=== PATIENT | male | born 1950 | race Caucasian/White ===

== ENCOUNTER → 2017-09-29 | Outpatient (CLI) | payer OTHER ==
[~2017-09-29] VITALS: Ht 177.8 cm; Wt 83.9 kg
[~2017-09-29] MED LIST: ADDERALL 20 MG20 M1 PO; AMBIEN 5 MG TABL5 M1 PO; ASPIR 8181 MG PO; CENTRUM SILVER1 EAC2 PO; COZAAR 50 MG TA50 M2 PO; FLEXERIL PO; FLOMAX0.4 MG PO; FOLIC ACID1 MG PO; LIPITOR10 MG PO; METHOTREXATE 22.5 MG PO; MOBIC7.5 MG PO; PERCOCET 5-3251 EACH PO; PERCOCET PO; PREDNISONE 10 M10 MG PO; TOPROL XL25 MG PO; ZOFRAN ODT4 MG PO; ZOLPIDEM TARTRA10 MG PO
--- NOTE | ~2017-09-29 | PATH ---
[facility] [place] [address] PATHOLOGY RPT PROCEDURE Name: ANAMARIA HERNÁNDEZ Room #: REG JOAO MDebo.#: [id number] Admission: 09/29/17 Date of : 52 Discharge: Report #: [id number] Path Case #: [id number] [facility] Accession Number: [id number] . 01 Material submitted: . PART A: POLYP AT ASCENDING COLON PART B: POLYP AT TRANSVERSE COLON . 01 Clinical history: . Pre-Op DX: Screening Post-Op DX: Colon polyps . 02 Diagnosis: A. Polyp, ascending colon, endoscopic biopsy: - Tubular adenoma. - Negative for high grade dysplasia. . B. Polyp, transverse colon, endoscopic biopsy: - Tubular adenoma. - Negative for high grade dysplasia. . (IUV:mml; 09/30/17) [facility]/09/30/2017 . 02 Electronically signed: . Casie Rolle MD, Pathologist NPI- [id number] . 01 Gross description: . A. Received in formalin labeled "Anamaria Hernández, polyp at ascending colon," are 2 segments of almanza soft tissue measuring 0.7 x 0.3 x 0.2 cm in aggregate dimensions and ranging from 0.3 to 0.4 cm in maximum dimension. The specimen is submitted entirely in cassette A1. . B. Received in formalin labeled "Anamaria Hernández, polyp at transverse colon," are 2 segments of almanza soft tissue measuring 0.6 x 0.3 x 0.2 cm in aggregate dimensions and measuring 0.3 cm each in maximum dimension. The specimen is submitted entirely in cassette B1. . . (TSD; 09/29/2017) TOB/TOB . 02 Pathologist provided ICD-10: D12.2, D12.3 . 02 CPT . [address] [address] PATHOLOGY RPT PROCEDURE Name: ANAMARIA HERNÁNDEZ Room #: REG CLI Kayla#: [id number] Admission: 09/29/17 Date of : 52 Discharge: Report #: [id number] Path Case #: [id number] Performed at: 01 [facility] [address] [id number] MD Dusty Lee MD Phone: [phone] Performed at: [address] [facility] [id number] MD Casie Rolle MD Phone: [phone]
--- NOTE | ~2017-09-29 | P ---
[facility] [place] [address] PROCEDURE REPORT Name: ANAMARIA HERNÁNDEZ Room #: REG [facility].#: [id number] Admission: 09/29/17 Attend Phys: Reginald Ferrara Discharge: Date of : 52 Report #: [id number] THIS REPORT FOR: //name// CC: Kofi Reed DATE OF SERVICE: 09/29/2017 PROCEDURE PERFORMED: Colonoscopy with biopsies. HISTORY OF PRESENT ILLNESS: The patient is a 67-year-old male who presents today for routine screening colonoscopy. Last colonoscopy was greater than 10 years ago. Denies any symptoms. No family history of colon cancer. DESCRIPTION OF PROCEDURE: The risks and benefits of the procedure were explained to the patient, those risks including but not limited to bleeding, perforation and the risk of sedation. He understood these risks and gave informed consent. Sedation was given using propofol per anesthesia. Next, a digital rectal exam was initially performed, which was normal. Next, using a standard Olympus colonoscope, the scope was placed in the patient's anus and advanced under direct vision to the cecum. The overall prep was excellent. The cecum and ileocecal valve were normal in appearance. In the ascending colon, a 4-mm sessile polyp was noted. This was removed with cold forceps, otherwise normal. A 3-mm sessile polyp was noted in the transverse colon, also removed with cold forceps. The descending and sigmoid colon were normal. The rectal mucosa was normal. On retroflexion, no abnormalities were noted. The scope was then withdrawn and the procedure terminated. The patient tolerated the procedure well. IMPRESSION: 1. Two small colonic polyps. 2. Otherwise, normal colonoscopy. RECOMMENDATIONS: 1. Await biopsy results. 2. If polyps are hyperplastic, repeat in 10 years; if adenomatous polyps, repeat in 5 years. Thank you for allowing me to participate in his care. <ELECTRONICALLY SIGNED> By: Reginald Reed MD 10/01/17 [id number] Reginald Reed MD /nt
== END | disposition home or self-care (01) ==
LOC: GI 07:03
DX: Z12.11 Encounter for screening for malignant neoplasm of colon (principal); D12.2 Benign neoplasm of ascending colon; D12.3 Benign neoplasm of transverse colon; I10 Essential (primary) hypertension; E78.5 Hyperlipidemia, unspecified; Z87.442 Personal history of urinary calculi; Z98.890 Other specified postprocedural states; Z79.899 Other long term (current) drug therapy; Z79.82 Long term (current) use of aspirin
CPT/HCPCS: 62110; 62900

== ENCOUNTER → 2019-10-12 | Outpatient (CLI) | payer OTHER | LOC: RAD 09:34 | PROVIDERS: ATTEND Physician Assistant | DX: L40.0 Psoriasis vulgaris (principal); Z79.899 Other long term (current) drug therapy ==

== ENCOUNTER → 2020-05-31 | Outpatient (CLI) | payer OTHER | LOC: SJCVCIMAG 07:50 | PROVIDERS: ATTEND Internal Medicine Cardiovascular Disease | DX: Z01.818 Encounter for other preprocedural examination (principal); R00.0 Tachycardia, unspecified; M19.90 Unspecified osteoarthritis, unspecified site ==